=== PATIENT | female | born 1970 | race Hispanic/Latino ===

== ENCOUNTER 2020-01-22 07:56 | Day surgery (SDC) | payer OTHER ==
[~2020-01-22] VITALS: Ht 157.5 cm; Wt 72.6 kg
[~2020-01-22 07:56] MED LIST: ATOR40TA71 PO; METF-444 PO; PREG75 PO; SODIUM CHLORIDE 0.9% 1000ML 1,000 ML IV ONE
[2020-01-22 09:15] VITALS: BP 141/68
[2020-01-22] MEDS ORDERED: PANT40TA54 PO (09:57)
[2020-01-22] MEDS ORDERED: ATOR40TA71 PO (09:57)
[2020-01-22] MEDS ORDERED: DAPA5TAB PO (09:57)
[2020-01-22] MEDS ORDERED: METO10TA3 PO (09:57)
[2020-01-22] MEDS ORDERED: MIDO10TA PO (09:57)
[2020-01-22] MEDS ORDERED: PROPOFOL 10 MG/ML 20ML VIAL IV ONE ×2 (10:25)
[2020-01-22 10:48] VITALS: BP 118/68
[2020-01-22 10:53] VITALS: BP 116/62
[2020-01-22 10:58] VITALS: BP 101/61
[2020-01-22 11:03] VITALS: BP 122/72
== END 2020-01-22 11:30 ==
LOC: DAH 07:56 → ENDO 07:56
PROVIDERS: ATTEND Internal Medicine Gastroenterology
DX: Z12.11 Encounter for screening for malignant neoplasm of colon (principal); K29.70 Gastritis, unspecified, without bleeding; K21.00 Gastro-esophageal reflux disease with esophagitis, without bleeding; R11.15 Cyclical vomiting syndrome unrelated to migraine; E11.9 Type 2 diabetes mellitus without complications; E78.5 Hyperlipidemia, unspecified; I10 Essential (primary) hypertension; R11.2 Nausea with vomiting, unspecified; Z79.84 Long term (current) use of oral hypoglycemic drugs; Z79.899 Other long term (current) drug therapy
CPT/HCPCS: 43239; 82948 ×2; A4215 ×2; A4221; A4222; A4223; A4606; A4620; A4657; A4663; C9803; G0121; J2704; J7030; U0003; G0105